=== PATIENT | male | born 1970 | race Two or more races ===

== ENCOUNTER 2020-05-14 13:00 | Outpatient (CLI) | payer MEDICAID ==
[~2020-05-14] VITALS: Ht 177.8 cm; Wt 93.4 kg
[2020-05-14 13:22] VITALS: BP 130/75
[2020-05-14] MEDS ORDERED: DOXAZOSIN MESYLA1 MG ORAL (13:22)
[2020-05-14] MEDS ORDERED: ASPIRIN EC81 MG ORAL (13:22)
== END 2020-05-14 15:16 | disposition home or self-care (01) ==
LOC: PAN 13:00
DX: Z00.00 Encounter for general adult medical examination without abnormal findings (principal)
CPT/HCPCS: 99203